=== PATIENT | female | born 1985 | race Caucasian/White ===

== ENCOUNTER 2019-04-17 16:45 | Emergency (ER) | payer OTHER ==
--- NOTE | 2019-04-17 17:00 | PDOC ---
Rapid Medical Evaluation Chief Complaint: Pain, Acute Time Seen by Provider: 04/17/19 16:57 Medical Evaluation: 04/17/19 16:57 Patient c/o: rt suprapubic pain, hx rt ovarian cyst, recent depo injection ( 3 wks ago) Patient on brief exam: rt suprapubic tenderness, vss Patient ordered for: ua, upreg, tv u/s Patient to proceed to the ED Discharge Disposition - Diagnosis Acute suprapubic pain - Discharge Dispostion Condition at time of disposition: Stable - Referrals - Patient Instructions - Post Discharge Activity
[2019-04-17] MEDS ORDERED: KETOROLAC TROMETHAMINE 60 MG/2 ML VIAL IM ONE (17:01)
[2019-04-17 17:15] VITALS: TEMP 98.6; BMI 16.8
[2019-04-17] MEDS ORDERED: ONDANSETRON *ODT* 4 MG TABLET SL ONE (17:43)
--- NOTE | 2019-04-17 17:44 | PDOC ---
History of Present Illness - General Chief Complaint: Pain, Acute Stated Complaint: ABD PAIN/SENT BY PCP Time Seen by Provider: 04/17/19 16:57 History Source: Patient Exam Limitations: No Limitations Past History - Travel Traveled outside of the country in the last 30 days: No Close contact w/someone who was outside of country & ill: No - Past Medical History Allergies/Adverse Reactions: Allergies Allergy/AdvReac Type Severity Reaction Status Date / Time No Known Allergies Allergy Verified 04/17/19 17:00 Home Medications: Ambulatory Orders NK [No Known Home Medication] 04/17/19 - Suicide/Smoking/Psychosocial Hx Smoking History: Current every day smoker Have you smoked in the past 12 months: Yes Information on smoking cessation initiated: No Hx Alcohol Use: Yes Drug/Substance Use Hx: No Review of Systems - Review of Systems Able to Perform ROS?: Yes Comments:: 04/17/19 19:01 CONSTITUTIONAL: Absent: fever, chills, diaphoresis, generalized weakness, malaise, loss of appetite HEENT: Absent: rhinorrhea, nasal congestion, throat pain, throat swelling, difficulty swallowing, mouth swelling, ear pain, eye pain, visual Changes CARDIOVASCULAR: Absent: chest pain, loss of consciousness, palpitations, irregular heart rate, peripheral edema RESPIRATORY: Absent: cough, shortness of breath, dyspnea with exertion, orthopnea, wheezing, stridor, hemoptysis GASTROINTESTINAL: Absent: abdominal pain, abdominal distension, nausea, vomiting, diarrhea, constipation, melena, hematochezia GENITOURINARY: Present: pelvic pain Absent: dysuria, frequency, urgency, hesitancy, hematuria, flank pain, genital pain MUSCULOSKELETAL: Absent: myalgia, arthralgia, joint swelling SKIN: Absent: rash, itching, pallor HEMATOLOGIC/IMMUNOLOGIC: Absent: easy bleeding, easy bruising, lymphadenopathy, frequent infections ENDOCRINE: Absent: unexplained weight gain, unexplained weight loss, heat intolerance, cold intolerance NEUROLOGIC: Absent: headache, focal weakness or paresthesias, dizziness, unsteady gait, seizure, mental status changes, bladder or bowel incontinence PSYCHIATRIC: Absent: anxiety, depression, suicidal or homicidal ideation, hallucinations. Is the patient limited Greek proficient: No *Physical Exam - Vital Signs Last Vital Signs Temp Pulse Resp BP Pulse Ox 98.6 F 95 H 18 136/88 99 04/17/19 16:57 04/17/19 16:57 04/17/19 16:57 04/17/19 16:57 04/17/19 16:57 - Physical Exam Comments: 04/17/19 19:01 GENERAL: Well developed, well nourished. Awake and alert. No acute distress. HEENT: Normocephalic, atraumatic. PERRLA, EOMI. No conjunctival pallor. Sclera are non- icteric. Moist mucous membranes. Oropharynx is clear. NECK: Supple. Full ROM. No JVD. Carotid pulses 2+ and symmetric, without bruits. No thyromegaly. No lymphadenopathy. CARDIOVASCULAR: Regular rate and rhythm. No murmurs, rubs, or gallops. Distal pulses are 2+ and symmetric. PULMONARY: No evidence of respiratory distress. Lungs clear to auscultation bilaterally. No wheezing, rales or rhonchi. ABDOMINAL: Soft. Non-tender. Non-distended. No rebound or guarding. No organomegaly. Normoactive bowel sounds. MUSCULOSKELETAL Normal range of motion at all joints. No bony deformities or tenderness. No CVA tenderness. EXTREMITIES: No cyanosis. No clubbing. No edema. No calf tenderness. SKIN: Warm and dry. Normal capillary refill. No rashes. No jaundice. NEUROLOGICAL: Alert, awake, appropriate. Cranial nerves 2-12 intact. No deficits to light touch and temperature in face, upper extremities and lower extremities. No motor deficits in the in face, upper extremities and lower extremities. Normoreflexic in the upper and lower extremities. Normal speech. Toes are down- going bilaterally. Gait is normal without ataxia. PSYCHIATRIC: Cooperative. Good eye contact. Appropriate mood and affect. Pelvic: External genitalia normal without lesions. Vaginal vault is clear without blood or discharge. Cervix is long and closed. No cervical motion tenderness. Uterus is nontender and normal in size. R Adnexal pain, no masses. ED Treatment Course - LABORATORY CBC & Chemistry Diagram: 04/17/19 18:45 04/17/19 18:45 Medical Decision Making - Medical Decision Making 04/17/19 19:03 The patient is a 33-year-old female past medical history of ovarian cysts, currently on Depakote, presents to the ER with right pelvic pain worsening over the past week. She saw her [facility] [employer] approximately 1 week ago and she is told she had a right-sided ovarian cyst approximately 3 cm. She states that since the week past the pain only increased. She went back to her [facility] [employer] today for further evaluation. Given her level of pain she was referred to the ER to have a repeat ultrasound done and to have evaluation of her pelvic pain. Denies fever, chills , urinary symptoms, lightheadedness and dizziness. Patient does not have a menstrual cycle due to Depakote A/P: Pelvic pain On exam patient has left-sided adnexal tenderness on the bimanual. No CMT. No foul smelling discharge Differential diagnosis includes but is not limited to ovarian torsion, STD, colitis, less likely appendicitis. Basic labs, transvaginal ultrasound, urine ordered Sign out given to GORDON Draper. Patient pending lab values and imaging. *DC/Admit/Observation/Transfer Diagnosis at time of Disposition: Pelvic pain - Discharge Dispostion Disposition: HOME Condition at time of disposition: Stable - Referrals Referrals: ON STAFF,NOT [Primary Care Provider] - - Patient Instructions Printed Discharge Instructions: Ovarian Cyst Additional Instructions: follow-up with the soldering machine feeder as soon as possible you may take ibuprofen every 6 hours as needed for pain return to the emergency room for any worsening symptoms. - Post Discharge Activity Forms/Work/School Notes: Back to Work
[2019-04-17] MEDS ORDERED: KETOROLAC TROMETHAMINE 60 MG/2 ML VIAL ONE (18:17)
[2019-04-17] MEDS ORDERED: ONDANSETRON *ODT* 4 MG TABLET ONE (18:17)
[2019-04-17 18:23] LABS: HCG,QUALITATIVE URINE Negative
[2019-04-17 18:47] LABS: EPI CELLS 1.4 /HPF (0-5/HPF); HYALINE CASTS 4 /lpf (0-8); URINE APPEARANCE CLEAR; URINE BACTERIA 77.2 /hpf (NEGATIVE); URINE BILIRUBIN NEGATIVE (NEGATIVE); URINE COLOR YELLOW; URINE GLUCOSE (UA) NEGATIVE (NEGATIVE); URINE KETONE NEGATIVE (NEGATIVE); URINE LEUK ESTERASE TRACE (NEGATIVE); URINE NITRITE NEGATIVE (NEGATIVE); URINE PROTEIN NEGATIVE (NEGATIVE); URINE RBC 11 /hpf (0-4); URINE UROBILINOGEN 0.2 mg/dL (0.2-1.0); URINE WBC 3 /hpf (0-5)
[2019-04-17 19:04] LABS: BASO % 0.6 % (0-2.0); EOS % 1.3 % (0-4.5); HEMATOCRIT 42.3 % (32.4-45.2); HEMOGLOBIN 14.4 GM/dL (10.7-15.3); LYMPH % 26.4 % (8-40); MCH 31.4 pg (25.7-33.7); MCHC 33.9 g/dl (32.0-36.0); MEAN CELL VOLUME 92.5 fl (80-96); MEAN PLT VOLUME 7.8 fl (7.5-11.1); MONO % 7.1 % (3.8-10.2); NEUT % 64.6 % (42.8-82.8); PLATELET COUNT 231 K/MM3 (134-434); RBC 4.57 M/mm3 (3.60-5.2); RDW 12.6 % (11.6-15.6); WHITE BLOOD COUNT 8.6 K/mm3 (4.0-10.0)
[2019-04-17 19:09] LABS: INR 1.1 (0.83-1.09)
[2019-04-17] MEDS ORDERED: ACETAMINOPHEN 325 MG TABLET (FP) PO ONE (19:21)
[2019-04-17 19:23] LABS: ALBUMIN 4.2 g/dl (3.4-5.0); BILIRUBIN,TOTAL 0.4 mg/dL (0.2-1); BLOOD UREA NITROGEN 8.7 mg/dL (7-18); CALCIUM 9.1 mg/dL (8.5-10.1); CREATININE 0.7 mg/dL (0.55-1.3); POTASSIUM 3.8 mmol/L (3.5-5.1); TOT PROT 6.9 g/dl (6.4-8.2)
--- NOTE | 2019-04-17 19:55 | PDOC ---
*Physical Exam - Vital Signs Last Vital Signs Temp Pulse Resp BP Pulse Ox 98.6 F 95 H 18 136/88 99 04/17/19 16:57 04/17/19 16:57 04/17/19 16:57 04/17/19 16:57 04/17/19 18:55 ED Treatment Course - LABORATORY CBC & Chemistry Diagram: 04/17/19 18:45 04/17/19 18:45 - ADDITIONAL ORDERS Additional order review: Laboratory Results 04/17/19 04/17/19 04/17/19 18:45 18:45 17:58 PT with INR 13.00 INR 1.10 H Sodium 140 Potassium 3.8 Chloride 108 H Carbon Dioxide 26 Anion Gap 6 L BUN 8.7 Creatinine 0.7 Est GFR (CKD-EPI)AfAm 132.87 Est GFR (CKD-EPI)NonAf 114.64 Random Glucose 72 L Calcium 9.1 Total Bilirubin 0.4 AST 7 L ALT 21 Alkaline Phosphatase 50 Total Protein 6.9 Albumin 4.2 Urine Color Yellow Urine Appearance Clear Urine pH 6.0 Ur Specific [place] 1.019 Urine Protein Negative Urine Glucose (UA) Negative Urine Ketones Negative Urine Blood 1+ H Urine Nitrite Negative Urine Bilirubin Negative Urine Urobilinogen 0.2 Ur Leukocyte Esterase Trace Urine WBC (Auto) 3 Urine RBC (Auto) 11 Urine Casts (Auto) 4 U Epithel Cells (Auto) 1.4 Urine Bacteria (Auto) 77.2 Urine HCG, Qual Negative 04/17/19 18:45 RBC 4.57 MCV 92.5 MCHC 33.9 RDW 12.6 MPV 7.8 Neutrophils % 64.6 Lymphocytes % 26.4 Monocytes % 7.1 Eosinophils % 1.3 Basophils % 0.6 - Medications Given in the ED: ED Medications Discontinued Medications Generic Name Dose Route Start Last Admin Trade Name Freq PRN Reason Stop Dose Admin Ketorolac Tromethamine 60 mg 04/17/19 17:01 04/17/19 18:30 Toradol Injection - IM 04/17/19 17:02 60 mg ONCE ONE Administration Ondansetron HCl 4 mg 04/17/19 17:43 04/17/19 18:30 Zofran Odt - SL 04/17/19 17:44 4 mg ONCE ONE Administration Medical Decision Making - Medical Decision Making 04/17/19 19:55 Patient seen by the advanced practice provider under my direct supervision. Ancillary testing reviewed as necessary. I agree with plan as outlined by the advanced practice provider. *DC/Admit/Observation/Transfer Diagnosis at time of Disposition: Acute suprapubic pain - Discharge Dispostion Condition at time of disposition: Stable - Referrals Referrals: ON STAFF,NOT [Primary Care Provider] - - Patient Instructions - Post Discharge Activity
--- NOTE | 2019-04-17 21:00 | PDOC ---
*Physical Exam - Vital Signs Last Vital Signs Temp Pulse Resp BP Pulse Ox 98.6 F 95 H 18 136/88 99 04/17/19 16:57 04/17/19 16:57 04/17/19 16:57 04/17/19 16:57 04/17/19 18:55 ED Treatment Course - LABORATORY CBC & Chemistry Diagram: 04/17/19 18:45 04/17/19 18:45 - ADDITIONAL ORDERS Additional order review: Laboratory Results 04/17/19 04/17/19 04/17/19 18:45 18:45 17:58 PT with INR 13.00 INR 1.10 H Sodium 140 Potassium 3.8 Chloride 108 H Carbon Dioxide 26 Anion Gap 6 L BUN 8.7 Creatinine 0.7 Est GFR (CKD-EPI)AfAm 132.87 Est GFR (CKD-EPI)NonAf 114.64 Random Glucose 72 L Calcium 9.1 Total Bilirubin 0.4 AST 7 L ALT 21 Alkaline Phosphatase 50 Total Protein 6.9 Albumin 4.2 Urine Color Yellow Urine Appearance Clear Urine pH 6.0 Ur Specific [place] 1.019 Urine Protein Negative Urine Glucose (UA) Negative Urine Ketones Negative Urine Blood 1+ H Urine Nitrite Negative Urine Bilirubin Negative Urine Urobilinogen 0.2 Ur Leukocyte Esterase Trace Urine WBC (Auto) 3 Urine RBC (Auto) 11 Urine Casts (Auto) 4 U Epithel Cells (Auto) 1.4 Urine Bacteria (Auto) 77.2 Urine HCG, Qual Negative 04/17/19 18:45 RBC 4.57 MCV 92.5 MCHC 33.9 RDW 12.6 MPV 7.8 Neutrophils % 64.6 Lymphocytes % 26.4 Monocytes % 7.1 Eosinophils % 1.3 Basophils % 0.6 - Medications Given in the ED: ED Medications Discontinued Medications Generic Name Dose Route Start Last Admin Trade Name Freq PRN Reason Stop Dose Admin Acetaminophen 1,000 mg 04/17/19 19:21 04/17/19 20:05 Tylenol - PO 04/17/19 19:22 Not Given ONCE ONE Ketorolac Tromethamine 60 mg 04/17/19 17:01 04/17/19 18:30 Toradol Injection - IM 04/17/19 17:02 60 mg ONCE ONE Administration Ondansetron HCl 4 mg 04/17/19 17:43 04/17/19 18:30 Zofran Odt - SL 04/17/19 17:44 4 mg ONCE ONE Administration Medical Decision Making - Medical Decision Making 04/17/19 21:17 UA " no torsion likely ruptured cyst. trace fluids. will d/c home. patient feels a lot better. *DC/Admit/Observation/Transfer Diagnosis at time of Disposition: Pelvic pain - Discharge Dispostion Disposition: HOME Condition at time of disposition: Stable - Referrals Referrals: ON STAFF,NOT [Primary Care Provider] - - Patient Instructions Printed Discharge Instructions: Ovarian Cyst Additional Instructions: follow-up with the nuclear medicine technologist as soon as possible you may take ibuprofen every 6 hours as needed for pain return to the emergency room for any worsening symptoms. - Post Discharge Activity Forms/Work/School Notes: Back to Work
[2019-04-17 21:45] VITALS: BP 109/69; PULSE 72
== END 2019-04-17 21:54 | disposition home or self-care (01) ==
LOC: JER 16:45
PROC: 3E0233Z Introduction of Anti-inflammatory into Muscle, Percutaneous Approach (ICD-10-PCS; principal; 2019-04-17)
DX: R10.2 Pelvic and perineal pain (principal)
CPT/HCPCS: 36415; 76830-TC; 80053; 81003; 84703; 85025; 85610; 87086; 87491; 87591; 96372; 99283-25; Q0162